=== PATIENT | male | born 1985 | race Two or more races ===

== ENCOUNTER 2024-06-13 12:49 | Emergency (ER) | payer OTHER, SELFPAY ==
[2024-06-13 12:53] VITALS: BP 108/65; PULSE 118; RESP 16; TEMP 37.1; O2SAT 95
[2024-06-13 12:55] VITALS: BMI 29.5
--- NOTE | 2024-06-13 13:04 | PD.EDSEIZ ---
ED Seizures RME/HPI General Chief Complaint: Seizure Stated Complaint: SEIZURE Time Seen by Provider: 06/13/24 12:52 Arrival date/time: 06/13/24 12:49 RME / HPI RME / HPI Narrative: 39 yo male patient with h/o seizures on Keppra BIBA for recurrent seizure. Per patient had seizure at 2am lasting 2 minutes. She administered midazolam. Today around noon had another seizure lasting around 2 minutes. gave midazolam again and decided to call EMS. Patient appears postictal. No injuries. Last seizure approximately 7 months ago. States has been compliant with medications. On Keppra. Related Data Home Medications ?Medication ?Instructions ?Recorded ?Confirmed loratadine 10 mg tablet 10 mg PO QDAY 06/16/23 06/16/23 omeprazole 40 mg capsule,delayed 40 mg PO QDAY 06/16/23 06/16/23 release triamcinolone acetonide 55 mcg 55 mcg intranasal PRN PRN Allergy 06/16/23 06/16/23 nasal spray aerosol (Nasacort) Symptoms Previous Rx's ?Medication ?Instructions ?Recorded levetiracetam 750 mg tablet 750 mg PO BID #60 tabs 06/17/23 (Keppra) Allergies Allergy/AdvReac Type Severity Reaction Status Date / Time No Known Allergies Allergy Verified 06/13/24 12:58 Course Orders Category Date Time Status levETIRAcetam INJ [Keppra Inj] Med 06/13/24 13:02 Discontinued 1,000 mg IVP X1 ONE Vital Signs Vital signs: Vital Signs Temperature 98.7 F 06/13/24 12:53 Pulse Rate 118 H 06/13/24 12:53 Respiratory Rate 16 06/13/24 12:53 Blood Pressure 108/65 06/13/24 12:53 Pulse Oximetry (%) 95 06/13/24 12:53 Oxygen Delivery Method Nasal Cannula 06/13/24 12:53 Oxygen Flow Rate 4 06/13/24 12:53 Seizure MDM Narrative MDM Narrative:: EEG 06/17/[address] with [address] Macias's interpretation Patient data External records reviewed:: [facility] previous records Clinical information provided by:: patient Social determinants that could affect healthcare access:: none Patient has the following chronic illnesses:: seizure disorder How is presenting disease/condition affected by chronic disease/condition?: caused by Evaluation data The following diagnostics were reviewed and interpreted by me:: other (specify) Lab and/or radiology exams considered but not ordered:: considered CT and/or MR brain. Considered EEG Medications / Prescriptions Medications or Prescriptions considered but not ordered:: none Medication administrations:: Medication Administration History Discontinued Medications Levetiracetam (Levetiracetam Inj 100 Mg/Ml Vial 5ml) 1,000 mg IVP X1 ONE Stop: 06/13/24 13:03 Last Admin: 06/13/24 13:46 Dose: 1,000 mg Documented By: LP as above Diagnosis Seizure Differential Diagnosis: intractable seizure disorder, generalized seizure and epileptic seizure Most likely diagnosis given after review of the tests above:: recurrent seizure Admission Indicated Admission indicated?: not indicated Discharge Plan Prescriptions/Referrals Prescriptions/Med Rec: No Action omeprazole 40 mg capsule,delayed release(DR/EC) 40 mg PO QDAY triamcinolone acetonide [Nasacort] 55 mcg Aerosol,[place] 55 mcg INTRANASAL PRN PRN (Reason: Allergy Symptoms) loratadine 10 mg Tablet 10 mg PO QDAY levetiracetam [Keppra] 750 mg tablet 750 mg PO BID Qty: 60 0RF Problem List Clinical Impression: Recurrent seizures Patient/Caregiver Discharge Instructions Print Language: Yi
[2024-06-13 13:35] VITALS: BP 112/72; PULSE 100; RESP 20; TEMP 37.1; O2SAT 96
[2024-06-13] MEDS: levETIRAcetam INJ 100 MG/ML VIAL 5ML 1000 MG IVP (13:46)
[2024-06-13 14:30] VITALS: BP 112/79; PULSE 94; RESP 18; TEMP 36.9; O2SAT 96
[2024-06-13 18:38] VITALS: BP 115/70; PULSE 82; RESP 20; O2SAT 97
--- NOTE | 2024-06-13 18:38 | PC.NURSE ---
Pt discharged home w/ via private vehicle; pt amb to ED entrance. IV dc'd w/o difficulty; pt demetrio well. D/C inst given w/ understanding expressed and questions answered.
== END 2024-06-13 18:38 | disposition home or self-care (01) ==
PROVIDERS: Emergency Provider Emergency Medicine; PCP Nurse Practitioner Primary Care
DX: G40.909 Epilepsy, unspecified, not intractable, without status epilepticus (principal)
CPT/HCPCS: 96374; 99284; J1953